=== PATIENT | male | born 1960 | race Caucasian/White ===

== ENCOUNTER 2017-08-30 17:16 | Emergency (ER) | payer BC, OTHER ==
[~2017-08-30] VITALS: Ht 180.3 cm; Wt 86.2 kg
[~2017-08-30 17:16] MED LIST: NEURONTIN
--- NOTE | 2017-08-30 19:15 | NUR ---
Dr. Blankenship at bedside for MSE.
--- NOTE | 2017-08-30 19:20 | NUR ---
Pt ambulated to ER, c/o coughing, wheezing, and shortness of breath, reports x 4 days. Patient seen by MD, meds administered.
[2017-08-30] MEDS ORDERED: BENZONATATE 100 MG CAPSULE ONE (19:29)
[2017-08-30] MEDS ORDERED: HYDROCODONE BIT/HOMATROPINE 5 ML UDC ONE (19:30)
[2017-08-30] MEDS: HYDROCODONE BIT/HOMATROPINE 5 ML UDC PO ONE (19:33)
[2017-08-30] MEDS: BENZONATATE 100 MG CAPSULE PO ONE (19:33)
--- NOTE | 2017-08-30 19:49 | NUR ---
Patient discharged to home in stable conditon. Written and verbal after care instructions given. Patient verbalizes understanding of instructions. Patient ambulated out of ER with steady gait, instructed not to drive, VSS, no acute signs of distress, all belongings taken. Patient to be driven by via private vehicle.
[2017-08-30 19:59] VITALS: BP 118/66
== END 2017-08-30 19:45 | disposition home or self-care (01) ==
LOC: ER 17:16
DX: J20.8 Acute bronchitis due to other specified organisms (principal); B96.89 Other specified bacterial agents as the cause of diseases classified elsewhere; Z79.899 Other long term (current) drug therapy
CPT/HCPCS: A4663

== ENCOUNTER 2019-08-20 08:01 | Emergency (ER) | payer BC ==
[~2019-08-20] VITALS: Ht 177.8 cm; Wt 79.4 kg
--- NOTE | 2019-08-20 08:16 | NUR ---
Patient ambulated with stable gait. Speech is clear, speaks in complete sentences. No acute neuro deficits. A/Ox4. Patient came for c/o cough sore throat + congestion x3 months. Respiratory even and unlabored despite the intermittent cough. Breath sounds normal bilaterally. No cardiovascular distress noted, all pulses palpable denies any cp. Patient in bed at lowest position, sr upx2, call light within reach. Safety precautions implemented per protocol. at bedside accompanying patient.
--- NOTE | 2019-08-20 08:52 | NUR ---
ERMD AT BEDSIDE FOR MSE
[2019-08-20] MEDS ORDERED: PROMETHAZINE/CODEINE 5 ML UDC PO ONE (09:45)
[2019-08-20] MEDS ORDERED: HYDROCODONE BIT/HOMATROPINE 5 ML UDC ONE (09:49)
--- NOTE | 2019-08-20 09:52 | NUR ---
Patient discharged to home in stable conditon. Written and verbal after care instructions given. Patient verbalizes understanding of instructions. Patient ambulated with stable gait.
[2019-08-20 09:55] VITALS: BP 121/79
[2019-08-20] MEDS ORDERED: HYDROCODONE BIT/HOMATROPINE 5 ML UDC PO ONE (10:00)
== END 2019-08-20 09:56 | disposition home or self-care (01) ==
LOC: ER 08:01
DX: J40 Bronchitis, not specified as acute or chronic (principal); Z87.01 Personal history of pneumonia (recurrent)
CPT/HCPCS: 71046; A4663

== ENCOUNTER 2020-12-23 01:36 | Emergency (ER) | payer BC ==
[~2020-12-23] VITALS: Ht 180.3 cm; Wt 81.6 kg
--- NOTE | 2020-12-23 01:59 | NUR ---
Pt out of ER for CT.
[2020-12-23 02:06] LABS: *BILIRUBIN,URIN NEGATIVE (NEGATIVE); *BLOOD, URINE TRACE (NEGATIVE); *CLARITY,URINE CLEAR (CLEAR); *COLOR,URINE Orange (YELLOW); *KETONES,URINE 2+ (NEGATIVE); LEUKOCYTE ESTERASE ,URINE NEGATIVE (NEGATIVE); NITRITE, URINE NEGATIVE (NEGATIVE); PH,URINE 7.5 (5.0-8.0); UGLUCOSE TRACE (NEGATIVE)
--- NOTE | 2020-12-23 02:08 | NUR ---
Pt back to ER from CT.
[2020-12-23] MEDS ORDERED: KETOROLAC TROMETHAMINE 30 MG INJ ONE (02:12)
[2020-12-23] MEDS ORDERED: ONDANSETRON 4 MG/2 ML VIAL ONE ×5 (02:12→11:51)
[2020-12-23] MEDS ORDERED: ONDANSETRON 4 MG/2 ML VIAL IV ONE ×5 (02:15→11:45)
[2020-12-23] MEDS ORDERED: IV NS 1000 ML 1,000 ML IV ONE (02:15)
[2020-12-23] MEDS ORDERED: KETOROLAC TROMETHAMINE 30 MG INJ IVP ONE (02:15)
[2020-12-23 02:33] LABS: HEMATOCRIT 41.7 % (36.7-47.1); MEAN CORPUSCULAR HEMOGLOBIN 29.7 uug (23.8-33.4); MEAN CORPUSCULAR VOLUME 86.5 fL (73.0-96.2); PLATELET COUNT (AUTO) 170 K/uL (152-348)
[2020-12-23 02:45] LABS: CREATININE 1.4 mg/dL (0.6-1.3); POTASSIUM 3.6 mmol/L (3.5-5.1)
[2020-12-23 02:48] LABS: BACTERIA,URINE NONE SEEN /HPF (NONE SEEN); SQUAMOUS EPITHELIAL CELL,UR FEW /HPF (NONE SEEN)
[2020-12-23 02:49] LABS: MUCUS,URINE MODERATE /LPF (0-FEW)
[2020-12-23 02:52] LABS: BILIRUBIN,DIRECT 0.1 mg/dL (0.0-0.2); BILIRUBIN,TOTAL 0.4 mg/dL (0.2-1.0); TOTAL PROTEIN, SERUM 7.3 g/dL (6.4-8.2)
--- NOTE | 2020-12-23 03:10 | NUR ---
Patient c/o of pain, MD Tesfaye made aware.
--- NOTE | 2020-12-23 03:14 | NUR ---
MD Tesfaye requested a urology consult for the patient, MD Scott Gil paged.
[2020-12-23] MEDS ORDERED: HYDROMORPHONE 1 MG/1 ML DISP.SYRIN IV ONE ×2 (03:15→10:45)
--- NOTE | 2020-12-23 03:18 | NUR ---
MD Scott Gil returned call, connected to MD Tesfaye.
--- NOTE | 2020-12-23 03:20 | NUR ---
Dr. Tesfaye speaking with Dr. Scott Gil for urology consult.
[2020-12-23] MEDS ORDERED: HYDROMORPHONE 1 MG/1 ML DISP.SYRIN ONE (03:23)
--- NOTE | 2020-12-23 05:37 | NUR ---
Patient is resting comfortably in bed with eyes closed, no acute distress noted.
--- NOTE | 2020-12-23 06:17 | NUR ---
Patient is resting comfortably in bed with eyes closed. No acute distress noted. at bedside.
--- NOTE | 2020-12-23 07:10 | NUR ---
Hand off report given to Jennifer WIGGINS.
--- NOTE | 2020-12-23 07:10 | NUR ---
Recieved pt in bed in no acute distress. Family at the bedside.
--- NOTE | 2020-12-23 07:40 | NUR ---
Pt walked to bathroom w/ steady gait, states no difficulty w/ urination.
--- NOTE | 2020-12-23 08:10 | NUR ---
Dr Palma spoke to Dr Chavez, Per pt will be transfered to [facility], information to follow.
--- NOTE | 2020-12-23 08:38 | NUR ---
Patient is resting comfortably in bed with eyes closed, NAD noted.
--- NOTE | 2020-12-23 09:40 | NUR ---
Pt states has no pain any longer, and able to empty bladder and urinate fully. Dr Palma made aware and orders received.
--- NOTE | 2020-12-23 10:08 | NUR ---
Received a call from Pt's case manger; pt will be admitted to [facility] room 1710. Pt made aware and agreed. ETA 1130.
[2020-12-23] MEDS ORDERED: HYDROMORPHONE 2 MG/1 ML DISP.SYRIN ONE (10:41)
--- NOTE | 2020-12-23 11:02 | NUR ---
Report geven to Funmi WIGGINS at [facility].
--- NOTE | 2020-12-23 11:42 | NUR ---
Pt moved to [facility] to be transfer and started vomitting, Dr Palma made aware and Zofran order received.
--- NOTE | 2020-12-23 11:55 | NUR ---
Pt left ER via vicki, report given to director of housing. All belongings sent w/ pt.
== END 2020-12-23 12:03 | disposition short-term general hospital (02) ==
LOC: ER 01:39
DX: N13.2 Hydronephrosis with renal and ureteral calculous obstruction (principal); Z87.01 Personal history of pneumonia (recurrent); Z20.822 Contact with and (suspected) exposure to COVID-19
CPT/HCPCS: 36415; 74018; 74176; 80048; 80076; 81001; 83690; 85025; 87426; 96361; 96374; 96375; 96376; 99285; J1170 ×2; J1885; J2405 ×5; A4663; J7030

== ENCOUNTER 2022-06-13 14:19 | Emergency (ER) | payer BC, OTHER ==
[~2022-06-13] VITALS: Ht 180.3 cm; Wt 81.6 kg
[2022-06-13] MEDS ORDERED: IBUP-1953 PO (14:50)
[2022-06-13] MEDS ORDERED: CIPR500T5 PO (14:50)
[2022-06-13] MEDS ORDERED: TAMS-3 PO (14:50)
[2022-06-13] MEDS ORDERED: MORPHINE SULFATE 4 MG/1 ML DISP.SYRIN IV ONE (15:15)
[2022-06-13] MEDS ORDERED: IV NORMAL SALINE 1000 ML BAG IV ONE (15:15)
[2022-06-13] MEDS ORDERED: KETOROLAC TROMETHAMINE 15 MG INJ IVP ONE (15:15)
[2022-06-13] MEDS ORDERED: KETOROLAC TROMETHAMINE 30 MG INJ ONE (15:25)
[2022-06-13] MEDS ORDERED: MORPHINE SULFATE 4 MG/1 ML DISP.SYRIN ONE (15:26)
[2022-06-13 15:47] LABS: *BILIRUBIN,URIN 2+ (NEGATIVE); *BLOOD, URINE 3+ (NEGATIVE); *KETONES,URINE 1+ (NEGATIVE); LEUKOCYTE ESTERASE ,URINE 3+ (NEGATIVE); NITRITE, URINE POSITIVE (NEGATIVE); UGLUCOSE 1+ (NEGATIVE)
[2022-06-13 15:49] LABS: HEMATOCRIT 41.3 % (36.7-47.1); MEAN CORPUSCULAR HEMOGLOBIN 29.4 uug (23.8-33.4); MEAN CORPUSCULAR VOLUME 89.2 fL (73.0-96.2); PLATELET COUNT (AUTO) 184 K/uL (152-348)
[2022-06-13 15:52] LABS: *CLARITY,URINE CLOUDY (CLEAR)
[2022-06-13 16:00] LABS: CARBON DIOXIDE 28 mmol/L (21-32); CHLORIDE 101 mmol/L (98-107); CREATININE 1.2 mg/dL (0.6-1.3); GLUCOSE 110 mg/dL (74-106); POTASSIUM 4.7 mmol/L (3.5-5.1); UREA NITROGEN, BLOOD 13 mg/dL (7-18)
[2022-06-13 16:09] LABS: ALANINE AMINOTRANSFERASE 25 U/L (16-63); ALKALINE PHOSPHATASE 69 U/L (50-136); ASPARTATE AMINOTRANSFERASE 12 U/L (15-37); BILIRUBIN,DIRECT 0.1 mg/dL (0.0-0.2); BILIRUBIN,TOTAL 0.5 mg/dL (0.2-1.0); TOTAL PROTEIN, SERUM 7.2 g/dL (6.4-8.2)
[2022-06-13 16:11] LABS: LIPASE 435 U/L (73-393)
[2022-06-13] MEDS ORDERED: IV NORMAL SALINE 250 ML IV ONE (16:24)
[2022-06-13] MEDS ORDERED: IOHEXOL 300MG/ML 100 ML INFUS..BTL ONE (16:24)
[2022-06-13] MEDS ORDERED: SWABABLE VALVE TRANSFER SET EA MC ONE (16:24)
[2022-06-13] MEDS ORDERED: CEFTRIAXONE 1 G in IV DEXTROSE 5% 50 ML IV SCH (17:00)
[2022-06-13] MEDS ORDERED: ONDANSETRON 4 MG/2 ML VIAL IV ONE (17:00)
--- NOTE | 2022-06-13 17:00 | NUR ---
"Plan to admit" per Dr Lane. ER registration/admitting staff Edith.
[2022-06-13] MEDS ORDERED: ONDANSETRON 4 MG/2 ML VIAL ONE (17:11)
[2022-06-13] MEDS ORDERED: CEFTRIAXONE /D5W 50ML IVPB **ER PYXIS IV ONE (17:11)
[2022-06-13] MEDS ORDERED: OXYBUTYNIN XL 5 MG TABSR PO SCH (17:15)
[2022-06-13] MEDS ORDERED: CEPH500C2 PO (17:48)
[2022-06-13] MEDS ORDERED: OXYB15TA19 PO (17:48)
[2022-06-13] MEDS ORDERED: HYDROCODONE/APAP 10-325 MG TABLET PO ONE (18:00)
[2022-06-13] MEDS ORDERED: ACETAMINOPHEN 325 MG TABLET PO ONE (18:00)
[2022-06-13] MEDS ORDERED: OXYBUTYNIN XL 5 MG TABSR PO ONE (18:03)
[2022-06-13] MEDS ORDERED: HYDROCODONE/APAP 10-325 MG TABLET ONE (18:03)
[2022-06-13] MEDS ORDERED: ACETAMINOPHEN 325 MG TABLET ONE (18:03)
[2022-06-13] MEDS ORDERED: OXYBUTYNIN CHLORIDE 5 MG TABLET ONE (18:13)
--- NOTE | 2022-06-13 18:14 | NUR ---
IV removed. Catheter intact and site benign. Pressure and 4x4 gauze applied to site. No bleeding noted. Patient discharged to home in stable condition with steady gait. Written and verbal after care instructions given to patient and spouse. Patient and family verbalized understanding and compliance of instructions. Stressed follow up with primary doctor and urologist or return to ER for worsening s/s.
[2022-06-13 20:14] LABS: *COLOR,URINE BROWN (YELLOW); BACTERIA,URINE MODERATE /HPF (NONE SEEN); RBC,URINE 50-80 /HPF (0-3); SQUAMOUS EPITHELIAL CELL,UR NONE SEEN /HPF (NONE SEEN); WBC,URINE 80-100 /HPF (0-3)
== END 2022-06-13 18:14 | disposition home or self-care (01) ==
LOC: ER 14:19
DX: N13.6 Pyonephrosis (principal); Z98.890 Other specified postprocedural states; Z96.89 Presence of other specified functional implants; Z87.01 Personal history of pneumonia (recurrent)
CPT/HCPCS: 99285; 74177; 96365; 96375; 71045; 96361; 80076; 80048; 81001; 83690; 85025; 87040 ×2; 84484; 36415; 93005; J0696; J1885; J2405; Q9967; J2270; J7040; A4663

== ENCOUNTER 2022-06-15 14:44 | Emergency (ER) | payer OTHER ==
[~2022-06-15] VITALS: Ht 167.6 cm; Wt 79.4 kg
[~2022-06-15 14:44] MED LIST changes: +CEPH500C2 PO; +CIPR500T5 PO; +IBUP-1953 PO; -NEURONTIN; +OXYB15TA19 PO; +TAMS-3 PO
[2022-06-15 15:22] LABS: *BILIRUBIN,URIN NEGATIVE (NEGATIVE); *BLOOD, URINE 3+ (NEGATIVE); *CLARITY,URINE SLIGHTLY CLOUDY (CLEAR); *KETONES,URINE NEGATIVE (NEGATIVE); *UROBILINOGEN,URINE 0.2 E.U./dl (NORMAL); LEUKOCYTE ESTERASE ,URINE 3+ (NEGATIVE); NITRITE, URINE NEGATIVE (NEGATIVE); UGLUCOSE NEGATIVE (NEGATIVE)
[2022-06-15] MEDS ORDERED: IV NORMAL SALINE 1000 ML BAG IV ONE (16:00)
[2022-06-15 16:06] LABS: HEMATOCRIT 38.6 % (36.7-47.1); MEAN CORPUSCULAR HEMOGLOBIN 30.5 uug (23.8-33.4); MEAN CORPUSCULAR VOLUME 88.6 fL (73.0-96.2); PLATELET COUNT (AUTO) 194 K/uL (152-348)
[2022-06-15] MEDS ORDERED: ONDANSETRON 4 MG/2 ML VIAL ONE (16:24)
[2022-06-15 16:25] LABS: BILIRUBIN,DIRECT 0.2 mg/dL (0.0-0.2); BILIRUBIN,TOTAL 0.5 mg/dL (0.2-1.0); CREATININE 1.6 mg/dL (0.6-1.3); POTASSIUM 4.4 mmol/L (3.5-5.1); TOTAL PROTEIN, SERUM 6.8 g/dL (6.4-8.2)
[2022-06-15] MEDS ORDERED: MORPHINE SULFATE 4 MG/1 ML DISP.SYRIN ONE (16:25)
[2022-06-15] MEDS ORDERED: MORPHINE SULFATE 2 MG/1 ML DISP.SYRIN ONE (16:25)
[2022-06-15] MEDS ORDERED: KETOROLAC TROMETHAMINE 30 MG INJ ONE (16:25)
[2022-06-15] MEDS ORDERED: KETOROLAC TROMETHAMINE 30 MG INJ IVP ONE (16:30)
[2022-06-15] MEDS ORDERED: ONDANSETRON 4 MG/2 ML VIAL IV ONE (16:30)
[2022-06-15] MEDS ORDERED: MORPHINE SULFATE 4 MG/1 ML DISP.SYRIN IV ONE (16:30)
--- NOTE | 2022-06-15 16:31 | NUR ---
PATIENT SEEN BY . CT SCAN DONE.
--- NOTE | 2022-06-15 17:34 | NUR ---
Patient states pain has diminished since receiving the meds
[2022-06-15] MEDS ORDERED: CIPR500T5 PO (17:40)
[2022-06-15] MEDS ORDERED: CEFTRIAXONE /D5W 50ML IVPB **ER PYXIS IV ONE (17:40)
[2022-06-15] MEDS ORDERED: ONDA4TAB11 PO (17:40)
[2022-06-15] MEDS ORDERED: CEFTRIAXONE 1 G in IV DEXTROSE 5% 50 ML IV ONE (17:45)
[2022-06-15] MEDS ORDERED: OXYC-128 PO (17:51)
--- NOTE | 2022-06-15 18:04 | NUR ---
DC, Rx (including precautions) and Follow up instructions given and explained to patient who states he understands all instructions
[2022-06-15 18:10] LABS: *COLOR,URINE Brown (YELLOW); BACTERIA,URINE MODERATE /HPF (NONE SEEN); RBC,URINE 50-80 /HPF (0-3); SQUAMOUS EPITHELIAL CELL,UR FEW /HPF (NONE SEEN); WBC,URINE 50-80 /HPF (0-3)
--- NOTE | 2022-06-15 18:13 | NUR ---
IV removed. Catheter intact and site benign. Pressure and 4x4 gauze applied to site. No bleeding noted.
== END 2022-06-15 18:14 | disposition home or self-care (01) ==
LOC: ER 14:44
DX: N13.6 Pyonephrosis (principal); Z96.0 Presence of urogenital implants; Z87.01 Personal history of pneumonia (recurrent)
CPT/HCPCS: 99285; 74176; 96365; 96375; 96361; 80076; 80048; 81001; 83690; 85025; 36415; J0696; J1885; J2405; J2270 ×2; J7040; A4663

== ENCOUNTER 2024-11-14 22:47 | Emergency (ER) | payer BC, OTHER ==
[~2024-11-14] VITALS: Ht 180.3 cm; Wt 79.4 kg
[~2024-11-14 22:47] MED LIST changes: +ONDA4TAB11 PO; +OXYC-128 PO
[2024-11-14 23:23] LABS: BASOPHILS % (AUTO) 0.7 % (0.0-2.0); EOSINOPHILS # (AUTO) 0.1 K/uL (0.0-0.7); EOSINOPHILS % (AUTO) 1.3 % (0.0-7.0); HEMATOCRIT 41.8 % (36.7-47.1); HEMOGLOBIN 14.2 g/dL (12.5-16.3); LYMPHOCYTES # (AUTO) 2.9 K/uL (0.8-4.8); LYMPHOCYTES % (AUTO) 43.3 % (20.5-51.5); MEAN CORPUSCULAR HGB CONC 34 g/dL (32.5-36.3); MEAN CORPUSCULAR VOLUME 88.3 fL (73.0-96.2); MONOCYTES # (AUTO) 0.5 K/uL (0.1-1.30); MONOCYTES % (AUTO) 7.2 % (0.0-11.0); NEUTROPHILS # (AUTO) 3.2 K/uL (1.8-8.9); NEUTROPHILS % (AUTO) 47.5 % (38.5-71.5); PLATELET COUNT (AUTO) 197 K/uL (152-348); RED BLOOD CELL COUNT(AUTO) 4.73 MIL/uL (4.06-5.63); RED CELL DISTRIBUTION WIDTH 13.5 % (12.1-16.2); WHITE BLOOD COUNT (AUTO) 6.7 K/uL (3.6-10.2)
[2024-11-14 23:32] LABS: CALCIUM 8.6 mg/dL (8.5-10.1); CARBON DIOXIDE 29 mmol/L (21-32); CHLORIDE 104 mmol/L (98-107); CREATININE 1.2 mg/dL (0.6-1.3); GLUCOSE 92 mg/dL (74-106); POTASSIUM 3.6 mmol/L (3.5-5.1); SODIUM SERUM 142 mmol/L (136-145); UREA NITROGEN, BLOOD 20 mg/dL (7-18)
[2024-11-14 23:45] LABS: ALANINE AMINOTRANSFERASE 26 U/L (16-63); ALBUMIN 3.8 g/dL (3.4-5.0); ALKALINE PHOSPHATASE 84 U/L (50-136); ASPARTATE AMINOTRANSFERASE 13 U/L (15-37); BILIRUBIN,DIRECT 0.1 mg/dL (0.0-0.2); BILIRUBIN,TOTAL 0.3 mg/dL (0.2-1.0); NT-PRO BNP 46 pg/mL (0-125); TOTAL PROTEIN, SERUM 7.1 g/dL (6.4-8.2)
[2024-11-15 02:25] VITALS: BP 121/87; TEMP 98; O2SAT 99
== END 2024-11-15 02:27 | disposition home or self-care (01) ==
LOC: ER 22:47
DX: R07.2 Precordial pain (principal); Z87.09 Personal history of other diseases of the respiratory system; Z87.39 Personal history of other diseases of the musculoskeletal system and connective tissue
CPT/HCPCS: 36415; 71045; 84484; 85025; 85730; A4606; A4663